=== PATIENT | female | born 1990 | race Caucasian/White ===

== ENCOUNTER 2017-10-05 15:30 | Outpatient (RCR) | payer MEDICAID, SELFPAY | END 2017-10-12 23:59 | LOC: DC 15:30 | PROVIDERS: Family Provider Internal Medicine; PCP Internal Medicine; Visit Provider Obstetrics & Gynecology | DX: O24.410 Gestational diabetes mellitus in pregnancy, diet controlled (principal); Z71.3 Dietary counseling and surveillance | CPT/HCPCS: 97802; G0108 ==

== ENCOUNTER 2017-11-08 22:30 | Inpatient (IN) | payer MEDICAID, SELFPAY ==
[2017-11-08 20:22] VITALS: BMI 26.2
[2017-11-08 21:21] LABS: Bedside Glucose 127 mg/dL (70-110)
[2017-11-08] MEDS: Acetaminophen 500 MG Tablet 1000 MG PO (21:56)
[2017-11-08] MEDS: Insulin NPH Human 100 UNITS/ML PEN 6 UNITS SC (21:57)
[2017-11-08] MEDS: Lactated Ringers 1,000 ML 50 ML IV ×2 (22:40→23:47)
[2017-11-08 23:05] LABS: Hematocrit 33.3 % (37-47); Hemoglobin 10.7 g/dl (12.0-15.0); Mean Corp Hgb Conc 32.1 g/gl (32-36); Mean Corpuscular Volume 77.8 fL (81-99); Mean Platelet Vol. 9.7 fl (6.2-12.0); Platelet Count 282 K/mm3 (150-450); RBC Distribution Width CV 13.6 % (11.6-14.6); RBC Distribution Width SD 38.6 fl (35.1-43.9); Red Blood Count 4.28 M/mm3 (4.2-5.4); Scan Indicated on CBC? Y/N NO; White Blood Count 17.5 K/mm3 (4.4-11.0)
[2017-11-08 23:10] LABS: Bedside Glucose 115 mg/dL (70-110)
[2017-11-09 00:16] LABS: Bedside Glucose 123 mg/dL (70-110)
[2017-11-09 01:10] LABS: Bedside Glucose 122 mg/dL (70-110)
[2017-11-09] MEDS: Dext 5%-0.45% NS 1,000 ML 125 ML IV ×2 (01:43→09:18)
[2017-11-09] MEDS: Lactated Ringers 1,000 ML 15 ML IV ×2 (01:43→03:20)
[2017-11-09 02:17] LABS: Bedside Glucose 127 mg/dL (70-110)
[2017-11-09 03:16] LABS: Bedside Glucose 116 mg/dL (70-110)
[2017-11-09 04:21] LABS: Bedside Glucose 119 mg/dL (70-110)
[2017-11-09 05:21] LABS: Bedside Glucose 112 mg/dL (70-110)
[2017-11-09 07:01] LABS: Bedside Glucose 95 mg/dL (70-110)
[2017-11-09 07:11] LABS: Bedside Glucose 96 mg/dL (70-110)
--- NOTE | 2017-11-09 07:51 | PCM.HP.OB ---
History Date of Admission: 11/08/17 Final RONALD: 11/19/17 Final RONALD Source: US <20 weeks Gestational age: 38 Weeks and 4 Days History of this : 27yo @ 38.3 weeks at time of admission. pt was c/o contractions and found to be making cervical change. pt is GDMA2 on insulin. Pt was started on insulin drip at admission due to elevated BS. Pertinent Past Medical History: PMH: Depression, GMDA2, Graves dx, Tobacco abuse Obhx: x 1 (7lb 4oz) Meds: Insulin all: NKDA Sxhx: Tonsillectomy Allergies No Known Allergies Allergy (Verified 11/08/17 20:26) Current Medications Acetaminophen (Tylenol) 325 - 650 mg PO Q4H PRN PRN PRN Reason: PAIN OR FEVER >100.4F Al Hydroxide/Mg Hydroxide (Mylanta Ii) 15 - 30 ml PO Q4H PRN PRN PRN Reason: INDIGESTION Citric Acid/Sodium Citrate (Bicitra) 30 ml PO UD PRN Dextrose (D50w Syringe) 0 gm IV X1 PRN; Protocol PRN Reason: Hypoglycemia Dextrose (D50w Syringe) 0 gm IV X1 PRN; Protocol PRN Reason: Hypoglycemia Glucagon () 1 mg IM .X1 PRN PRN Reason: Hypoglycemia Glucagon () 1 mg IM .X1 PRN PRN Reason: Hypoglycemia Lactated Ringer's () 1,000 mls @ 50 mls/hr IV .Q20H JUSTYN Last Admin: 11/08/17 23:47 Dose: 50 mls/hr Dextrose/Sodium Chloride () 1,000 mls @ 125 mls/hr IV .Q8H JUSTYN Last Admin: 11/09/17 01:43 Dose: 125 mls/hr Insulin Aspart 100 unit/ (Sodium Chloride) 100 mls @ 1 mls/hr CONT INF .Q100H JUSTYN; 1 UNIT/HR PRN Reason: Protocol Last Admin: 11/09/17 01:43 Dose: 1 mls/hr Lactated Ringer's () 1,000 mls @ 15 mls/hr IV .Q48H JUSTYN Last Admin: 11/09/17 03:20 Dose: 15 mls/hr Nalbuphine HCl (Nubain) 5 - 10 mg IV Q3H PRN PRN PRN Reason: PAIN (4-10/10) Ondansetron HCl (Zofran) 4 mg IV Q8H PRN PRN PRN Reason: NAUSEA Promethazine HCl (Phenergan (Ll)) 6.25 - 12.5 mg IV Q4H PRN PRN; Protocol PRN Reason: IF NAUSEA PERSISTS Sodium Chloride () 5 - 15 ml IV UD JUSTYN Last Admin: 11/09/17 01:26 Dose: Not Given Smoking Status: Current every day smoker Alcohol: None Drug Use: none Number of Fetus(es): 1 Review of Systems Constitutional: Reports: Anorexia Cardiovascular: Reports: Chest Pain Gastrointestinal: Reports: Abdominal Pain - from contractions Physical Exam Vitals: FHR: 130 mod elroy, + accels no decel. TOCO: q 2min General: Alert, Oriented x3 Abdomen: Soft, Non Tender, Gravid Estimated gestational size: Appropriate for gestational size Presentation: Cephalic Cervix Dilation (cm): 7 Station: -2 Effacement (%): 80 Assessment/Plan 27yo @ 38.4 wks in active labor- GDMA2 1) insulin drip protocol 2) epdiural for pain 3) Monitor fhr/toco 4) anticipate 5) PNL reviewed: O-, HIV neg, RUB imm, Syphilis neg, HEP B neg, GBS negative 6) Rhogam after delivery
[2017-11-09 08:06] LABS: Bedside Glucose 106 mg/dL (70-110)
--- NOTE | 2017-11-09 09:05 | PCM.PN.BLA ---
Progress Note S: Patient feeling comfortable with epidural. Denies sensation of rectal pressure. Patient's family at bedside, FOB sleeping. Patient' s mother providing support. O: VSS, Afebrile. Insulin pump at 3 units/hr FHT baseline 140, moderate variability, + accels, no decels, + scalp stim noted Ctx q 2-3 minutes, palpate mild to moderately strong SVE = unchanged 7/80/-1. Copious clear and pink-tinged mucus, IUPC placed A: 27 y/o @ 38.3 weeks, Transition Stage of Labor, GDMA2 P: 1) IUPC placed, decision for Pitocin IV Augmentation to be started pending confirmation of inadequate contractions 2) Anticipate Inessa Sánchez CNM
[2017-11-09] MEDS: Oxytocin 30 units/NS 500 ml 30 UNITS/500 ML IV.SOLN IV (09:19)
[2017-11-09 09:26] LABS: Bedside Glucose 112 mg/dL (70-110)
[2017-11-09 10:11] LABS: Bedside Glucose 110 mg/dL (70-110)
[2017-11-09 11:01] LABS: Bedside Glucose 107 mg/dL (70-110)
[2017-11-09] MEDS: Oxytocin 30 units/NS 500 ml 30 UNITS/500 ML IV.SOLN 334 UNITS IV (11:28)
[2017-11-09] MEDS: Oxytocin 30 units/NS 500 ml 30 UNITS/500 ML IV.SOLN 167 UNITS IV (12:01)
[2017-11-09 12:11] LABS: Bedside Glucose 82 mg/dL (70-110)
--- NOTE | 2017-11-09 12:13 | PCM.OB.VAG ---
Vaginal Delivery Maternal Presentation: Active Labor Amniotic Membrane Rupture Type: Artificial Amniotic Fluid Description: Clear Final RONALD: 11/19/17 Gestational age: 38 Weeks and 4 Days Date of Procedure: 11/09/17 Pre-Operative Diagnosis: Term , Active Labor, GDMA2 Post-Operative Diagnosis: of Viable Girl Baby Surgery/ Procedure Performed: Spontaneous Vaginal Delivery Type of Anesthesia: Epidural Description of Procedure: Patient reported feeling rectal pressure, desired to push with ctx. Patient found to be C/C/ +3. Patient pushed well with urge, delivered viable girl baby over 1st degree lacerated perineum at 11:23am. delivered OA, restituted to CELSA then ROT. Loose nuchal cord noted and was easily reduced. Anterior shoulder delivered spontaneously without difficulty followed by posterior shoulder and body. Infant placed on maternal chest where baby was dried and stimulated. Mouth and nose bulb suctioned. Infant then had spontaneous cry and respirations. Apgars 9 and 9. Weight pending. Umbilical cord clamped and cut once it stopped pulsing, placenta then delivered spontaneously via Archer mechanism. Placenta intact with 3VC, placental triage WNL. FF midline 3FB below umbilicus with massage. EBL = 350cc. Upon inspection of vaginal vault, 1st degree lacerated perineum noted and was repaired under epidural analgesia using 3-0 Rapide suture. Sponge and needle count correct. Baby to breast, bonding and initiated. Vaginal sweep negative. First blood sugar = 86, will do fasting BGM tomorrow AM. Anticipate resumption of regular diet and holding insulin at this time. Dr. Garcia notified of delivery. Inessa Sánchez CNM Presentation: Vertex, CELSA Placental Delivery Description: Spontaneous Placenta Disposition: [facility] Cord Vessel Description: 3 Vessels Nuchal Cord Compression: Without compression Cord Entanglement: Around neck x 1, loose Drain: Moreau to straight drain Estimated Blood Loss: 350 Infant A gender: Female (1 minute): 9 (5 minute): 9 Episiotomy Description: None Laceration: Midline, Vaginal Extension/lac, 1st degree Medications given after delivery: IV Pitocin Complications: None
[2017-11-09] MEDS: Ibuprofen 600 MG Tablet PO ×2 (13:02→18:54)
[2017-11-09] MEDS: 0.9% Saline Lock 10 ML Syringe IV (13:10)
[2017-11-09 13:30] VITALS: BP 103/61; PULSE 76; RESP 18; TEMP 36.7
[2017-11-09 15:16] VITALS: BP 101/61; PULSE 93; RESP 16; TEMP 36.5
--- NOTE | 2017-11-09 19:00 | NURSING ---
pt voided missed hat
[2017-11-09 20:00] VITALS: BP 110/66; PULSE 88; RESP 18
[2017-11-09 22:00] VITALS: BP 110/66; PULSE 88; RESP 16
--- NOTE | 2017-11-09 23:32 | NURSING ---
Infant heard crying out at nurses station. Entered room and patient holding . Asked if maybe diaper needed changed and patient stated I don't think so. Placed in crib. This nurse noticed in soiled diaper. Changed infant and swaddled. Asked patient if she wanted to hold infant, shrugged shoulders and stated yeah, I guess. given to patient. Patient's affect is extremely flat. Patient appears withdrawn at this time. SS consult is placed.
[2017-11-10 02:00] VITALS: BP 112/55; PULSE 98; RESP 17
--- NOTE | 2017-11-10 03:52 | DCINST_ITS ---
Discharge Diet: No Restrictions Discharge Activity: Return to Normal Activity, May not drive while taking narcotic pain medications., May Shower May resume sexual activity in: 4-6 weeks Additional Activity Instructions:: Nothing in the vagina for 4-6 weeks. You may return to work/school in 6 weeks. Call your doctor if your incision/area has: Continuous Slow Oozing, Sudden Increased Bleeding, Increased Pain/ Swelling, Increased Redness, Foul Smelling Discharge Call your doctor if you observe: Fever of 101 or Higher, Inability to urinate, Inability to have a bowel movement, Using more than one pad per hour Additional Instructions: If you experience any of the following, contact your healthcare provider. * Bleeding that soaks a pad every hour for 2 hours * Fever 100.4 or higher * Unrelieved incision or abdominal pain * Swelling, redness, discharge or bleeding from your incision or episiotomy site * Your incision begins to separate * Problems urinating (including inability to urinate or burning while urinating) . * Visual changes * Severe headache * Flu-like symptoms * Pain or redness in one of both of your breasts * Pain, warmth, tenderness or swelling in your legs, especially the calf area * Frequent nausea and vomiting * Symptoms of depression or anxiety If you experience any of the following, call 911 or go to the nearest Emergency Room. * Chest pain * Problems breathing * Seizure activity * Partial or complete paralysis of a body part, slurred speech, weakness or drooping of the face, or a sudden inability to walk or hold your balance Allergies/Adverse Reactions: Allergies No Known Allergies Allergy (Verified 11/08/17 20:26) Medications to take at Discharge Tablet 11/08/17 Acetaminophen [Tylenol] 1,000 mg PO Q8H PRN PRN tablet 11/09/17 Senna/Docusate Sodium [Senokot-S] 1 - 2 tablet PO DAILY PRN PRN tablet When: Call to make an appointment with your doctor in 6 weeks. If you had elevated Blood Pressure or 4th degree laceration you will need to be seen in 2 weeks. Primary Care Physician: Johny Aden MD [Primary Care Provider] -
[2017-11-10 04:00] VITALS: BP 93/54; PULSE 78; RESP 16
[2017-11-10] MEDS: Ibuprofen 600 MG Tablet PO ×2 (04:27→20:06)
--- NOTE | 2017-11-10 05:04 | NURSING ---
0430- Entered patient's room for assessment and vital signs. sleeping in crib. Questioned patient on last feeding time. Patient reported Around 10pm. Patient educated again on importance of feeding infant every 2-3 hours. Patient does not respond. Continues to have poor eye contract and flat affect. Nurse changed infant's diaper for 2nd time this shift. Consult made to case management.
[2017-11-10 05:51] LABS: Bedside Glucose 91 mg/dL (70-110)
[2017-11-10 05:57] LABS: Hematocrit 28.7 % (37-47); Hemoglobin 9.3 g/dl (12.0-15.0); Mean Corp Hgb Conc 32.4 g/gl (32-36); Mean Corpuscular Hgb 25.3 pg (27.0-32.0); Mean Platelet Vol. 9.7 fl (6.2-12.0); Platelet Count 200 K/mm3 (150-450); RBC Distribution Width CV 13.8 % (11.6-14.6); RBC Distribution Width SD 39.3 fl (35.1-43.9); Red Blood Count 3.68 M/mm3 (4.2-5.4); White Blood Count 19.3 K/mm3 (4.4-11.0)
[2017-11-10 06:01] LABS: Scan Indicated on CBC? Y/N NO
--- NOTE | 2017-11-10 07:33 | PCM.PN.BLA ---
Progress Note S: Patient at bedside baby, FOB also present and lovingly rubbing baby's back and stroking baby's head. Patient reports some periods of rest overnight, per her report baby is latching well. Patient notes no issues at this time. Denies dizziness, scotoma or PAYAN. Denies any issues with urination or ambulation. O: VSS, Afebrile Hgb = 9.3 Nipples without cracks, blisters. No ecchymoses noted. Abdomen NT x 4 quadrants, FF 3FB below umbilicus Perineum well-approximated, scant rubra lochia +2/4 reflexes in LE no edema noted Negative calf tenderness to palpation A: 27 y/o G2 now P2, PPD #1 following of viable baby girl, Normal PP Course, Asymptomatic Anemia P: 1) Rx Feosol 45mg PO 1 tablet daily for Asymptomatic Anemia 2) Consultation today 3) Anticipate discharge to home tomorrow 4) RTC at [facility] at 6 weeks PP. Inessa Sánchez CNM
--- NOTE | 2017-11-10 07:41 | PN_ITS ---
Progress Note S: Patient at bedside baby, FOB also present and lovingly rubbing baby's back and stroking baby's head. Patient reports some periods of rest overnight, per her report baby is latching well. Patient notes no issues at this time. Denies dizziness, scotoma or PAYAN. Denies any issues with urination or ambulation. O: VSS, Afebrile Hgb = 9.3 Nipples without cracks, blisters. No ecchymoses noted. Abdomen NT x 4 quadrants, FF 3FB below umbilicus Perineum well-approximated, scant rubra lochia +2/4 reflexes in LE no edema noted Negative calf tenderness to palpation A: 27 y/o G2 now P2, PPD #1 following of viable baby girl, Normal PP Course , Asymptomatic Anemia P: 1) Rx Feosol 45mg PO 1 tablet daily for Asymptomatic Anemia 2) Consultation today 3) Anticipate discharge to home tomorrow 4) RTC at [facility] at 6 weeks PP. Inessa Sánchez CNM
[2017-11-10] MEDS: Acetaminophen 500 MG Tablet 1000 MG PO (09:13)
[2017-11-10 09:15] VITALS: BP 97/59; PULSE 81; RESP 20; TEMP 36.3
[2017-11-10] MEDS: Senna/Docusate Sodium 1 Tablet PO (10:35)
--- NOTE | 2017-11-10 12:21 | NURSING ---
at 1150, pt remains in bed in the same position and holding baby in same position since the last round. pt did not order breakfast but encouraged to order lunch or get food from refridgerator. pt does know how to order. boyfriend now awake but sitting on couch looking at phone. pt instructed to call this nurse when baby feeds next so latch can be observed.
[2017-11-10 13:50] VITALS: BP 93/55; PULSE 74; TEMP 36.2
--- NOTE | 2017-11-10 15:16 | NURSING ---
at 1455, cony from social service called and made aware of pt's PHQ9 results. cony to call her manager gift for follow up. at 1500, nicole, social media senior associate, called this nurse and stated someone from social work will see pt due to pt having suicide thoughts. nicole informed that this nurse has not seen any behavior that would support suicide at this time. nicole informed that pt has not been out of bed much today with exception of shower.
--- NOTE | 2017-11-10 16:03 | CASEMGMT ---
Social Work: [facility] Lesvia to assess patient for suicidal ideations and lethality. TC to JANE Narvaez. Solange aware that Lesvia will come to assess need for suicide precautions. THIAGO Ceballos
--- NOTE | 2017-11-10 16:12 | NURSING ---
at 1535, pt resting on side and baby's crib close to tv cabinets and not close to pt's bed. pt awaken and assistance given after pt did not attempt to feed baby around 1515 which would have been 4 hours. pt asked about suicide thoughts and she stated that was just a few days. at 1605, nicole from behavioral health in to see pt after being introduced by this nurse.
--- NOTE | 2017-11-10 16:26 | BH.NOTE ---
BH: Inpatient Note - Notes Behavioral Health Inpatient Note: 11/10/17 16:26 Pt's PHQ-9 came back with score >15 and pt reported yes to suicidal ideations. This behavioral health therapist went to meet with pt to assess suicidal lethality. This therapist entered room with pt's nurse, Solange, and Solange introduced this therapist to pt explaining why therapist would be meeting with pt. This therapist met with pt and pt was holding her baby throughout discussion. This therapist explained that from pt's answers on the PHQ-9 it seemed pt was having a difficult time. Pt agreed she has been feeling sad and depressed most days. Pt reported she has history of being depressed off and on for years. Pt reports having post depression after the of her now 5 year old daughter. In addition to being depressed pt reports experiencing social anxiety. Pt reports her anxiety makes it difficult to go out in public to the grocery store or other places that have a lot of people. Pt shares this sometimes keeps her isolated and recognizes it can increase her depressive symptoms. Pt reports she is able to leave the house, but often has to force herself. Pt reports she has received treatment about 2 years ago for counseling at [facility]. Pt reports she did find it beneficial to have counseling and reports being open to going back. Pt also went to a psychiatrist at the [facility] for medication management, denies current psychiatric medications and is unsure if she would be open to trying medications again. This therapist asked pt if she was having suicidal thoughts currently. Pt reported she had suicidal thoughts for a couple days off and on in past few weeks while being . Pt denies suicidal ideation, plan or intention since giving . Pt reports feeling she is able to keep herself safe. Pt reports history of past psychiatric hospitalization when she was 15 years old for suicidal ideation. Denies any past suicidal attempts. Pt reports since she was a teenager has had of and on passive thoughts of with no plan or intention. Pt reports she used to engage in self-injurious behavior in which she would cut herself, denies the cutting was a suicide attempt and instead reports it was her coping skill. Pt reports I haven't done that in years though in regards to self-injuring. Pt does not appear to be imminent risk to self or others thus a sitter was not recommended at this time. Plan is for a social media analyst to follow up with pt tomorrow. Pt reports she has support from her mother and filindsay?. Reports currently living with mother who helps care for pt's 5 year old daughter. Pt reports having everything she needs for the new baby besides a car seat, but reports family is working on getting one and will have one prior to discharge. This therapist strongly encouraged pt to follow up with outpatient counseling because it appears pt could benefit from additional support. This therapist provided pt phone numbers for various counseling agencies in the area. This therapist offered to call with pt to schedule an intake appointment, but pt declined at this time reporting she would do it later. Provided pt with this therapist's business card and a handout with local resources for mental health services in the area. This therapist followed up with pt's nurse.
[2017-11-10 20:08] VITALS: BP 98/51; PULSE 70; RESP 16; TEMP 36.2
[2017-11-11 02:04] VITALS: BP 91/50; PULSE 71; RESP 16; TEMP 36
[2017-11-11 08:03] VITALS: BP 113/70; PULSE 75; RESP 16; TEMP 36.2
--- NOTE | 2017-11-11 10:30 | CASEMGMT ---
Social Work Note Labor and Delivery Unit Social Work Assessment completed. Refer to documentation below for further details. Date of Referral: 11/09/2017; 11/10/2017 Time of Referral: 2303; 0457 Referred By: Dr. Yordy Law; Dr. Julius Elizabeth Reason for Referral: maternal mental health issues Date of Intervention: 11.11.2017 Time of Intervention: 1030 History obtained from: Medical record and mother of baby (MOB) Nadege Lima Household composition: JV currently lives with her mother and father, infants maternal grandparents. Housing situation as of July 2016. MOB reports home situation is safe and adequate. Patient's parent/guardian status: MOB reports current involvement with Deejay Mahoney for the last 10 months, and is reported to be the father of baby (FOB). MOB reports stress in relationship as FOB has questioned paternity of , Gagandeep Mahoney. MOB denies having any uncertainty on paternity. MOB denies any form of abuse in relationship with FOB. Gagandeep is the first child for MOB and FOB together. JV has a daughter, Sabra Lima (born 12-26-12) from a previous relationship to Chandra Berg. MOB reports Chandra really doesnt have any involvement with Chandra. MOB reports current FOB has two children, ages 3 and 2, who live in [place]. Current FOB does not see those children. Medical History: JV is G2, P1 to 2 after delivering Baby Girl Gagandeep. MOB with later care starting at 15 weeks gestation. Record indicates maternal history of Gravess disease and Fibromyalgia. Gagandeep was born weighing 7 pounds 6 ounces, with Apgars of 8 and 9. MOB planning to breast feed. Educational Status: MOB reports completed through the 7th grade, dropping out of school due to depression and bullying. MOB denies any learning disability or IEP in school, and reports ability to read, write, and to understand what is read. Financial Status: JV does not currently work, really unable to say when last worked outside the home. MOB reports has been financially supported by my parents. Supplies: MOB reports to have needed supplies including bassinet, crib, diapers, wipes, and clothing. MOB does still need a car seat, but reports MOBs parents are purchasing prior to baby being discharged. Childcare/Caregiver(s): MOB plans to be primary caregiver to . Transportation: MOB reports has never had a drivers license, that has not been able to afford a car so has never felt the need to get the license. MOB reports MOBs parents, grandmother, or Deejay help with transportation. Programs/Agencies Involved: MOB reports to have medical and food assistance through S, and then has WIC. MOB patricia other agency involvement at this time. Children Services/Legal Issues: MOB denies legal issues. Denies past or present involvement with children services. Behavioral Health Issues: MOB with reported history of depression since the age of 13, with psychiatric hospitalization in adolescence, reportedly at the age of 15. MOB reports history of suicidal ideation off and on since adolescence. Chart indicates MOB with a history of self-injurious behaviors; history of Major Depressive Disorder, Borderline Personality Disorder, and Depression. MOB reports the depression, after older daughter was born was MOB having a lack of motivation. MOB reports history of trials on many different medications, but that Zoloft has worked the best in the past. Chart indicates MOB has been off of medications for the last 4 years. Note MOB did score an 18 on the PHQ9, answering yes to thoughts of suicide. MOB was seen by therapist from [facility] due to high score and for lethality assessment. MOB denied active thoughts, plans, or intent at that time, or any thoughts of suicide since delivery. Refer to Behavioral Health Documentation from 11-10-17, this admission, for further details. MOB denies any history of substance use or abuse. Negative drug screen prenatally on 08-03-2017. JV does smoke about a half a pack of cigarettes a day on average. Family/Social Stressors: JV is a single mother of two now, currently in a relationship with reported FOB to . Current FOB is reportedly questioning paternity. MOB reports to be accepting and happy about . MOB was living with a grandmother and then in July had to move due to the grandmother going to live in an assisted living. MOB could not maintain that home independently. MOB relies on others for transportation, and care indicates that MOB did fell isolated at home during this . MOB with mental health history, current depression present, not in any current treatment. Support Systems: MBO reports practical support from MOBs parents, FOB, and FOBs mother. MOB reports to receive emotional support from MOBs mother. Depression/Shaken Baby/Safe Sleeping: MOB educated to depression and anxiety. MOB able to give appropriate answers related to safe sleeping and shaken baby syndrome. ASSESSMENT: MOB reports to have adequate support at home from family, and that MOBs parents will be at home with MOB through the weekend. MOB reports parents are getting MOB a car seat, and then MOB will have all needed supplies to care for baby at home going. Regarding depression, MOB denies to this short story writer having any suicidal thoughts today, or since delivery of Rikku. MOB reports the thoughts which occurred prior to delivery surrounded around, and triggered by MOB having pain, which were not dealt with in MOBs opinion. MOB denies any intent or plan for suicide during this . MOB affect flattened with mood appearing congruent, normal eye contact. MOB did hold baby during assessment and was gentle and appropriate, intermittently gazed at , did try to feed baby once, though bonding cues at a minimum otherwise. MOB does identify positive feelings for baby and to feel there is a mejia already. Addressed feeding, as this short story writer noted nursing concern that baby went 6 hours without feeding the first night, and that MOB was needing much encouragement with baby care in general. MOB reports currently feeding the baby every 1-2 hours at this point. After discussion MOB agreed to have a [facility], a referral to [facility] if able to get services, and then to start back on antidepressant medications. MOB declining referral to [facility] program, as MOB states preference for one on one treatment. Updated nursing staff to need for social work follow up today as well as MOB agreement for antidepressant medication. Nursing to let OBGYN practitioner know so medication can be ordered at home going. PLAN: Will work on referrals back to the [facility]. -HEMALATHA Grossman, TRACTOR TRAILER TRUCK DRIVER
--- NOTE | 2017-11-11 13:06 | PN_ITS ---
Progress Note S: Patient sitting up in bed, patient's family and FOB at bedside providing support. Patient reports desire to be discharged to home today. Patient has noted increase depressive mood and feelings of self-harm. Hospital staff and Founder And President has been notified and has scheduled follow-up appointments with mental health early next week for patient. Patient reports good family support, patient's mother and FOB will be available to help provide support for patient when she goes home. Patient denies any pain, denies dizziness, scotoma or issues with ambulation. No urinary or bowel issues reported. O: VSS, Afebrile Nipples without cracks or blisters, no erythema or ecchymoses noted Abdomen NT x 4 quadrants, FF midline 2FB below umbilicus Scant rubra lochia, perineum well-approximated No calf tenderness in LE, no edema noted A: 27 y/o G2 now P2, PPD #2, PP Depression P: 1) Rx Zoloft 25 mg PO daily x 7 days, then increase dose to 2 pills PO daily. 2) Anticipatory health teaching done, patient will see mental health providers this Tuesday and in 3 weeks for n.v. 3) Patient to f/u with [facility] in 2 weeks for next visit 4) RTC otherwise in 6 weeks for PP visit Inessa Sánchez CNM
[2017-11-11 13:45] VITALS: BP 110/68; PULSE 85; RESP 16; TEMP 36.2
--- NOTE | 2017-11-11 16:30 | CASEMGMT ---
Social Work Note - Labor and Delivery Unit Mother of baby (JV) signed a release of information to [facility] today. Intake assessment arranged for 12-02-2017 at 1430 with Magdalena Whitaker. As this appointment is several weeks out, as MOB did rate a higher score on the PHQ9 with recent suicidal thoughts (though denies current or active thoughts, plans, intent), discussed with MOB having a sooner appointment with a telephone sex worker. MOB verbally agreed and reports will be able to get a ride from family. Arranged crisis appointment for Tuesday11-14-17 at 1400 with Marcia Salcedo. MOB confirms that will have family at home this weekend for extra support and that appointment on Tuesday will work out. MOB provided with community resource information for [facility], including options for mental health treatment, parent support, and in-kind support. Educated MOB to depression resources, including online resources which would be easy to access from home. After MOB and discharged home, this advertising copywriter approached by nursing staff. Nursing staff report that when MOB and were taken out to the car, the infant car seat was placed in the back of a truck and car seat was placed sideways and not buckled. Staff directed MOB to place the car seat in correct position and to get buckled. It is reported that MOB did comply with staff direction. This is of concern to this advertising copywriter, as this is MOBs second child and would be common knowledge about car seat safety and proper installation. Based on car seat issues at discharge, MOBs high depression rating initially after , recent thoughts of suicide, history of depression with MOB admission to having lack of motivation during that time, and then initial concerns about MOBs long periods between feedings, with not much support identified from FOB during that time, a referral made to Deb at [facility]. At this time not sure if enough to open a case, though if MOB would not go to mental health follow up then this advertising copywriter could call back to add concern to referral. PLAN: MOB and infant to home today. Mental Health follow up in place [facility] referral being made PPD packet given, including online resources Local community resource list given Transportation resources given regarding [facility] Van services and [employer] Referral to [facility] for dependency issues -THIAGO Grossman, BLOOD BANK CUSTODIAN
--- NOTE | 2017-11-16 09:00 | CASEMGMT ---
Social Work Labor and Delivery This residential mortgage underwriter able to verify, as the person who made initial appointment at [facility], that patient/mother of baby (MOB) did not show up to crisis appointment on 11-14-17. In light of high depression scores, suicidal thoughts in (though denied current thoughts), issues during hospitalization with feeding, and at time of discharge MOB not placing car seat correctly (and not a first time parent) this residential mortgage underwriter called [facility], Deb Bui, and left message with this update of MOB not following through with mental health appointment on 11-14-17. -THIAGO Grossman, AUTO VINYL TOP INSTALLER
== END 2017-11-11 13:45 | disposition home or self-care (01) | DRG 373 ==
LOC: WPOUT 22:35
PROVIDERS: Advanced Practice Midwife; Obstetrics & Gynecology; Admitting Provider Obstetrics & Gynecology; Family Provider Internal Medicine; PCP Internal Medicine; Visit Provider Obstetrics & Gynecology
DX: O24.424 Gestational diabetes mellitus in childbirth, insulin controlled (principal); F53 Mental and behavioral disorders associated with the puerperium, not elsewhere classified; O99.02 Anemia complicating childbirth; O99.334 Smoking (tobacco) complicating childbirth; O70.0 First degree perineal laceration during delivery; O69.81X0 Labor and delivery complicated by cord around neck, without compression, not applicable or unspecified; Z3A.38 38 weeks gestation of pregnancy; Z37.0 Single live birth
CPT/HCPCS: 59025; 59050; 82962; 85027; 85461; 86850; 86900; 86901; 90384; 99218; J7120; A4216; G0378; J2790; J7799

== ENCOUNTER 2019-07-10 15:05 | Inpatient (IN) | payer MEDICAID, SELFPAY ==
[2019-07-10 14:57] LABS: ROM Internal Control Test YES-OK TO RESULT pt. (Internal QC)
[2019-07-10 15:00] LABS: ROM Patient Test POSITIVE (Negative)
[2019-07-10 15:03] VITALS: BMI 28.4
[2019-07-10] MEDS: Lactated Ringers 1,000 ML 50 ML IV (15:55)
[2019-07-10] MEDS: Lactated Ringers 500 ML 999 ML IV (16:00)
[2019-07-10 16:27] LABS: Absolute Lymphocyte Count 1.11 X10^3/uL (0.83-4.51); Absolute Neutrophil Count 11.2 X10^3/uL (2.0-7.7); Basophil# 0.05 X10^3/uL; Basophil% 0.4 % (0-1); Eosinophil# 0.05 X10^3/uL; Eosinophils% 0.4 % (0-5); Hematocrit 36.4 % (37-47); Hemoglobin 11.5 g/dL (12.0-15.0); Lymphocyte # 1.11 X10^3/ul (4.0); Lymphocyte % 8.3 % (19-41); Mean Corp Hgb Conc 31.6 g/dL (32-36); Mean Corpuscular Hgb 24.5 pg (27.0-32.0); Mean Corpuscular Volume 77.6 fL (81-99); Mean Platelet Vol. 10.2 fl (6.2-12.0); Monocyte# 0.94 X10^3/uL; NRBC Flagged by Analyzer 0 % (0-5); Neutrophil # 11.16 X10^3/uL (2.7-7.7); Platelet Count 246 K/mm3 (150-450); RBC Distribution Width CV 13.6 % (11.6-14.6); Red Blood Count 4.69 M/mm3 (4.2-5.4); White Blood Count 13.4 K/mm3 (4.4-11.0)
[2019-07-10] MEDS: fentaNYL-bupivacaine (epidural) 100 ML BAG EPIDURAL (17:17)
--- NOTE | 2019-07-10 17:31 | PCM.HP.OB ---
History Date of Admission: 07/10/19 Final RONALD: 07/12/19 Final RONALD Source: US <20 weeks Gestational age: 39 Weeks and 5 Days History of this : This is a 28 year-old, G [], P [], at 39 weeks gestational age. Surgical History: Surgical History (Last Updated 07/10/19 @ 17:33 by Julius Elizabeth) Hx of tonsillectomy Z90.89 Allergies No Known Allergies Allergy (Verified 07/10/19 15:06) Home Medications: Home Medications Tablet 1 tab PO DAILY 11/08/17 Iron Carbonyl [Feosol] 45 mg PO DAILYCM capsule 11/10/17 Smoking Status: Current every day smoker Number of Fetus(es): 1 NST - FHR Rate Baby A Baseline: 120 Variability:: Moderate Accelerations:: 15 x 15 Decelerations:: None NST Reactive:: Yes Uterine Activity:: Q 2-4 minutes History Past Pregnancies: Past Pregnancies Delivery Date Name GA/Weeks Outcome Route Weight Infant Gender Labor Length Anesthesia Delivery Location Provider FOB Labs: See [facility] H[facility]P Physical Exam General: Alert, Oriented x3 Abdomen: Soft, Non Tender, Non-Distended, Gravid Neurological: Cranial nerves II-XII grossly intact ULTRASOUND SUPERVISOR: Normal external genitalia Estimated gestational size: Appropriate for gestational size Cervix Dilation (cm): 6 Station: -1 Effacement (%): 75 Assessment/Plan This is a 28 year-old, G3, P2002, at 39&5 weeks gestational age. Admit to L&D Pain - epidural GBS negative EFW less than 4500g, patient with adequate pelvis Routine care
[2019-07-10] MEDS: Oxytocin 30 units/NS 500 ml 30 UNITS/500 ML IV.SOLN 334 UNITS IV (20:17)
--- NOTE | 2019-07-10 20:32 | PCM.OPRPT ---
Vaginal Delivery Maternal Presentation: Active Labor, Spontaneous Rupture of Membranes Amniotic Membrane Rupture Type: Spontaneous at home Amniotic Fluid Description: Clear Final RONALD: 07/12/19 Gestational age: 39 Weeks and 5 Days Date of Procedure: 07/10/19 Pre-Operative Diagnosis: Labor Post-Operative Diagnosis: Labor Surgery/ Procedure Performed: Spontaneous Vaginal Delivery Type of Anesthesia: Epidural Description of Procedure: Patient prepped & draped in stirrups when C/C/+1. She pushed to deliver head. head was gently guided to allow delivery of anterior & posterior shoulders. No excess traction placed on head. Body delivered & infant placed on abdomen. 3VC clamped & cut in delayed fashion. Placenta delivered with gentle traction. Good uterine tone obtained. Presentation: CELSA Placental Delivery Description: Expressed Placenta Disposition: [facility] Cord Vessel Description: 3 Vessels Cord Entanglement: Around neck x 1, loose Estimated Blood Loss: 400ml A gender: Female - Opal (1 minute): 8 (5 minute): 9 Episiotomy Description: None Laceration: 2nd degree - perineal - repaired with 3-0 vicryl Medications given after delivery: IV Pitocin
[2019-07-10] MEDS: Ibuprofen 600 MG Tablet PO (21:51)
[2019-07-10 23:47] VITALS: BP 109/62; PULSE 82; RESP 16; TEMP 36.6; O2SAT 98
[2019-07-11 04:35] VITALS: BP 101/59; PULSE 81; RESP 16; TEMP 36.4; O2SAT 98
[2019-07-11] MEDS: Acetaminophen 500 MG Tablet 1000 MG PO (04:46)
[2019-07-11 08:00] VITALS: BP 99/65; PULSE 72; RESP 18; TEMP 36.6
--- NOTE | 2019-07-11 08:21 | PCM.PN.OB ---
Subjective: Pt doing well. No CP, SOB, lightheadedness, leg pain. Ambulating and voiding without difficulty. Lochia normal. - Physical Exam Vitals/I&O's: Vital Signs Temp Pulse Resp BP Pulse Ox 97.5 F L 81 16 101/59 L 98 07/11/19 04:35 07/11/19 04:35 07/11/19 04:35 07/11/19 04:35 07/11/19 04:35 Oxygen Delivery Method Room Air Weight: 181 lb 12.8 oz Body Mass Index (BMI) 28.4 Intake and Output for Last 24 Hours 07/09/19 07/10/19 07/11/19 23:59 23:59 23:59 Intake Total 1957.50 / 1957.50 Output Total 300 / 300 300 / 300 Balance 1657.50 / 1657.50 -300 / -300 General: Alert, No apparent distress HEENT: Atraumatic Abdomen: Soft, Non Tender, - - FF@U-1 Extremities: No edema, No Calf Tenderness Skin: No rashes Neurological: Neuro grossly intact Psych/Mental Status: Normal Affect, Appropriate Laboratory Results 07/10/19 14:45: Vag Amniotic Fld Detect POSITIVE H 07/10/19 15:55: WBC 13.4 H, RBC 4.69, Hgb 11.5 L, Hct 36.4 L, MCV 77.6 L, MCH 24.5 L, MCHC 31.6 L, RDW Std Deviation 38.0, RDW Coeff of Rita 13.6, Plt Count 246, MPV 10.2, Immature Gran % (Auto) 0.900, Neut % (Auto) 83.0 H, Lymph % (Auto) 8.3 L, [place] % (Auto) 7.0, Eos % (Auto) 0.4, Baso % (Auto) 0.4, Absolute Neuts (auto) 11.2 H, Absolute Lymphs (auto) 1.11, Nucleated RBC % 0 07/10/19 15:55: Blood Type O NEGATIVE, Antibody Screen TNP 07/10/19 15:55: Blood Type Cancelled, ABO/Rh Cancelled, A1 Subgroup Cancelled, A1 Antigen Typing Cancelled, Rho(D) Tech Interpret Cancelled, Antibody Screen NEGATIVE 07/10/19 22:20: Screen NEGATIVE, Baby's Blood Type O POSITIVE, Baby's BEAR NEGATIVE Current Medications Acetaminophen (Tylenol) 1,000 mg PO Q8H PRN PRN PRN Reason: Pain Score 1-3/10 Last Admin: 07/11/19 04:46 Dose: 1,000 mg Documented by: Bisacodyl (Dulcolax) 10 mg RECTAL UD PRN PRN Reason: If no BM Dibucaine (Dibucaine) 1 applic TOPICAL TID PRN PRN; Protocol PRN Reason: Discomfort Hydrocortisone (Hytone) 1 applic TOPICAL TID PRN PRN; Protocol PRN Reason: Discomfort Ibuprofen (Motrin) 600 mg PO Q6H PRN PRN PRN Reason: Pain Score 1-3/10 Last Admin: 07/10/19 21:51 Dose: 600 mg Documented by: Methylergonovine Maleate (Methergine) 0.2 mg IM X1 PRN PRN Reason: Excess bleeding/uterine atony Ondansetron HCl (Zofran) 4 mg IV Q4H PRN PRN PRN Reason: Nausea Oxycodone HCl (Oxyir) 5 - 10 mg PO Q4H PRN PRN PRN Reason: Pain Score 4-10/10 Senna/Docusate Sodium (Senokot-S, Francheska-Colace) 1 - 2 tablet PO DAILY PRN PRN PRN Reason: Constipation Simethicone (Mylicon) 80 mg PO PCHS PRN PRN Reason: Indigestion/Stomach pain Sodium Chloride () 5 - 15 ml IV UD PRN PRN Reason: SALINE FLUSH Medical Necessity - Tobacco Use Smoking Status: Current every day smoker Assessment/Plan PPD#1 s/p - Pt doing well - She desires to stay an additional night. Anticipate d/c home tomorrow
[2019-07-11 12:00] VITALS: BP 104/60; PULSE 73; RESP 16; TEMP 36.4
[2019-07-11] MEDS: Ibuprofen 600 MG Tablet PO (13:04)
--- NOTE | 2019-07-11 14:30 | CASEMGMT ---
Social Work Assessment Labor and Delivery Unit Address:[address] [place] [address] Date of Referral: 07.11.2019 Time of Referral: 08 Referred By: nursing notification Date of Intervention: 07.11.2019 Time of Intervention: 1430 Reason for Referral: maternal history of depression. History obtained from: medical records and mother of baby (MOB) Nadege Lima. This service writer familiar with MOB from prior deliveries at [facility] Household composition: MOB reports to live with her mother and father, reports home is stable and no safety concerns. Also in the home are MOB's minor children. Note, the father of baby lives separately from MOB in FOB's parental home. Patient's parent/guardian status: JV is 28 year old single female, involved with reported father of baby (FOB) Deejay Mahoney since 2016. JV denies any form of abuse in relationship with Deejay. Deejay is the father to 2 of JV's 3 children. Deejay has 2 other daughters, ages 4 and 3 who are living in [place]. JV's minor children include: Sabra Lima (born 12.26.2012), father is Chandra Berg. Chandra has not had contact with Sabra in a couple of years. JV's mother, Elli, has guardianship of Sabra. Gagandeep Mahoney (born 11.09.2017), father if Deejay Mahoney; Child is in JV's custody, no guardianship agreement for this child. Baby Opal Mahoney (born 07.10.2020) Medical History: JV is G3, P2 to 3 after delivering Opal. care good, starting at 9 weeks. Per medical records, the MOB has history of Graves disease, fibromyalgia, and migraines. Baby Opal as born at 39 weeks. Birthweight 8 pounds 10 ounces. Apgars 8 and 9 at 1 and 5 minutes respectively. Educational Status: MOB with a 7th grade education. MOB reports to be able to read. Prior social work assessment MOB denied any history of IEP or learning issues. MOB reportedly quit school due to bullying and depression. Financial Status: JV does not work and is reliant on her parents who work or the FOB who works at [employer] on 2th shift. Supplies: MOB states to have needed supplies to get started including bassinet, car seat, clothing, diapers, and wipes. MOB report no longer has a breast pump, does plan to breast feed. Childcare/Caregiver(s): MOB with help from FOB and MOB's mother. Transportation: MOB does not have her tractor driver teamster's license and relies on FOB or MOB's family. MOB denies transportation as an issue. Programs/Agencies Involved: MOB i active with S for medicaid and then with WIC. MOB reports was going to [facility] but last appointment was in February 2019. Children Services/Legal Issues: MOB denies any legal issues. MOB reports children services came out to the house a couple of times after Gagandeep was born and then closed the case. MOB denies any services since that one episode. There was concern after Gagandeep's regarding maternal depression and bonding with baby. Behavioral Health Issues: Mental Health History: MOB diagnosed with depression at the age of [age] years old. MOB with inpatient hospitalization at the age of 15 at [facility]. Has been on various medications through the years, but Zoloft has worked the best. MOB is not on any current psychiatric medicine. MOB had history of depression after of first daughter. MOB denies depression after Riisau, though at time of Gagandeep's MOB did screen positive for depression and had endorsed some suicidal ideation at that time. MOB report did go on medicine for about a month after Rikku and then feel as if MOB no longer needed the medicine. MOB with history of Borderline personality diagnosis and history of self injurious behavior by cutting. MOB denies any thoughts of suicide during this , no plans, or intent. Denies any self injurious behavior, nor any thoughts or desires to self injure (which as described in the past as something MOB did for coping rather than being suicidal). MOB reports was going to see a counselor at [facility] this year but the therapist moved away and MOB does not know who was referred to. MOB reports belief that last episode of treatment was in February 2019. Substance Use History: MOB denies any substance use or abuse issues outside of or during . Chart indicates that MOB does drink socially about 1-2 drinks a week outside of . MOB did smoke tobacco daily, reporting that amount depended on the day and MOB's stress levels. Family History: MOB's mother and maternal grandmother with history of depression. Drug Screens: Maternal screen negative on 12.12.2018. Family/Social Stressors: Unplanned and closely spaced pregnancies. MOB admits as shocked but did come to accept the and reports to feel a connection to this baby. MOB and FOB did separate a week before MOB found about about , not disclosing reasoning behind this but denies any safety issues. MOB reports did reconcile with FOB and things are going okay. MOB with history of mental health and not in current treatment, though reports to know where to go. At this time Maria Stein depression screen a 6, which 10 or higher indicative of likely depression. Support Systems: MOB reports her parents, FOB, and FOB's parents as ely supports. MOB reports her mother is her main emotional support. Depression/Shaken Baby/Safe Sleeping : MOB is aware of depression, denies interested in having social media community manager make a referral back to [facility] at this time. MOB reports to feel that depression is stable at this time. Denies thoughts of suicide, denies any bonding issue with baby, and report to feel a connection. MOB reports awareness of safe sleeping and shaken baby prevention. ASSESSMENT: Met with MOB introducing to self and role. MOB nodded head yes about remembering this service writer from pervious delivery. MOB quiet, flattened affect though did smile at times and did engage with baby during social work visit. MOB held baby appropriately, gazed at baby, and held baby. No voiced concerns thus far regarding mother/child interactions or bonding issues. Per RN, MOB has been attending to the baby and caring for the baby's needs. MOB report to have needed supplies for baby, to have support at home going, and denies current depression. MOB does know where to go for help in this area and indicates that can make own appointments if the need arises at time of discharge. MOB does decline [facility] or [facility] referrals at this time, but accepting of referrals. MOB answered questions, was polite, but not expansive on answers. MOB has been taking care of baby this admission, depression screens have been low and MOB denies any thoughts/plans/intent for suicide. No indication to call children services at this time. MOB report to have good support from her parents, and especially from her mother with the kids. PLAN: MOB and baby to home when ready. MOB provided with resource lists fo [facility] that including parent support and counseling. depression packet given as well. No other services requested or indicated but social work does remain available during hospital stay should needs arise or status with MOB and baby change. -HEMALATHA Grossman, PACKAGING SALES
[2019-07-11 16:00] VITALS: BP 110/70; PULSE 81; RESP 16; TEMP 36.7
[2019-07-11 20:50] VITALS: BP 103/64; PULSE 75; RESP 16; TEMP 36.7
[2019-07-12] MEDS: Ibuprofen 600 MG Tablet PO (00:39)
[2019-07-12 02:00] VITALS: BP 108/69; PULSE 75; RESP 18; TEMP 36.4
--- NOTE | 2019-07-12 07:54 | PCM.PN.OB ---
Subjective: Pt doing well. No CP, SOB, leg pain. Ambulating and voiding without difficulty. without any complaints. Lochia normal. She feels ready to go home today - Physical Exam Vitals/I&O's: Vital Signs Temp Pulse Resp BP Pulse Ox 97.6 F L 75 18 108/69 98 07/12/19 02:00 07/12/19 02:00 07/12/19 02:00 07/12/19 02:00 07/11/19 04:35 Oxygen Delivery Method Room Air Weight: 181 lb 12.8 oz Body Mass Index (BMI) 28.4 Intake and Output for Last 24 Hours 07/10/19 07/11/19 07/12/19 23:59 23:59 23:59 Intake Total 1957.50 / 1957.50 Output Total 300 / 300 700 / 700 Balance 1657.50 / 1657.50 -700 / -700 General: Alert, No apparent distress HEENT: Atraumatic Abdomen: Soft, Non-Distended Extremities: No edema, No Calf Tenderness Skin: No rashes Neurological: Neuro grossly intact Psych/Mental Status: Normal Affect, Appropriate Current Medications Acetaminophen (Tylenol) 1,000 mg PO Q8H PRN PRN PRN Reason: Pain Score 1-3/10 Last Admin: 07/11/19 04:46 Dose: 1,000 mg Documented by: Bisacodyl (Dulcolax) 10 mg RECTAL UD PRN PRN Reason: If no BM Dibucaine (Dibucaine) 1 applic TOPICAL TID PRN PRN; Protocol PRN Reason: Discomfort Hydrocortisone (Hytone) 1 applic TOPICAL TID PRN PRN; Protocol PRN Reason: Discomfort Ibuprofen (Motrin) 600 mg PO Q6H PRN PRN PRN Reason: Pain Score 1-3/10 Last Admin: 07/12/19 00:39 Dose: 600 mg Documented by: Methylergonovine Maleate (Methergine) 0.2 mg IM X1 PRN PRN Reason: Excess bleeding/uterine atony Ondansetron HCl (Zofran) 4 mg IV Q4H PRN PRN PRN Reason: Nausea Oxycodone HCl (Oxyir) 5 - 10 mg PO Q4H PRN PRN PRN Reason: Pain Score 4-10/10 Senna/Docusate Sodium (Senokot-S, Francheska-Colace) 1 - 2 tablet PO DAILY PRN PRN PRN Reason: Constipation Simethicone (Mylicon) 80 mg PO PCHS PRN PRN Reason: Indigestion/Stomach pain Sodium Chloride () 5 - 15 ml IV UD PRN PRN Reason: SALINE FLUSH Medical Necessity - Tobacco Use Smoking Status: Current every day smoker Assessment/Plan PPD#2 s/p - Doing well - - PPBC: Pt undecided and would like to wait until her 6 week visit - Dispo: Pt feels ready to go home today. D/c home
--- NOTE | 2019-07-12 07:58 | DCINST_ITS ---
Discharge Diet: No Restrictions Discharge Activity: Return to Normal Activity, May Drive, May Shower, May Take a Tub Bath May resume sexual activity in: 6 weeks Weight Bearing Status: Full weight bearing Lifting Restrictions: None Call your doctor if you observe: Fever of 101 or Higher, Inability to urinate, Inability to have a bowel movement, Using more than one pad per hour, Shortness of breath, Dizziness, Fainting spells, Chest pain, Increased palpitations (irregular heartbeat), Calf discomfort, Uncontrolled pain Additional Instructions: If you experience any of the following, contact your healthcare provider. * Bleeding that soaks a pad every hour for 2 hours * Fever 100.4 or higher * Unrelieved incision or abdominal pain * Swelling, redness, discharge or bleeding from your incision or episiotomy site * Your incision begins to separate * Problems urinating (including inability to urinate or burning while urinating). * Visual changes * Severe headache * Flu-like symptoms * Pain or redness in one of both of your breasts * Pain, warmth, tenderness or swelling in your legs, especially the calf area * Frequent nausea and vomiting * Symptoms of depression or anxiety If you experience any of the following, call 911 or go to the nearest Emergency Room. * Chest pain * Problems breathing * Seizure activity * Partial or complete paralysis of a body part, slurred speech, weakness or drooping of the face, or a sudden inability to walk or hold your balance Allergies/Adverse Reactions: Allergies No Known Allergies Allergy (Verified 07/10/19 15:06) Medications to take at Discharge Tablet 1 tab PO DAILY 11/08/17 Iron Carbonyl [Feosol] 45 mg PO DAILYCM capsule 11/10/17 When: 6 weeks Primary Care Physician: Johny Aden MD [Primary Care Provider] - Test Results: Test results from this visit will be discussed in further detail at your follow- up appointment, if applicable.
[2019-07-12 08:11] VITALS: BP 102/65; PULSE 77; RESP 16; TEMP 36.4
--- NOTE | 2019-07-12 09:30 | CASEMGMT ---
Social Work Labor and Delivery Unit Checked in with nursing staff. No concerns about mother/child interactions or bonding. Mother of baby (MOB) is reported to be attending to baby's needs. See previous social work documentation for details of MOB's social history. No other services requested or indicated at this time. Plan: MOB and baby to discharge home today 07.12.2019. -THIAGO Grossman, CORN COOKER
[2019-07-12 12:20] VITALS: BP 100/60; PULSE 80; RESP 16; TEMP 36.1
== END 2019-07-12 12:50 | disposition home or self-care (01) | DRG 560 ==
LOC: WPOUT 15:12
PROVIDERS: Admitting Provider Obstetrics & Gynecology; Family Provider Internal Medicine; PCP Internal Medicine; Referring Provider Obstetrics & Gynecology; Visit Provider Obstetrics & Gynecology
DX: O69.81X0 Labor and delivery complicated by cord around neck, without compression, not applicable or unspecified (principal); O99.334 Smoking (tobacco) complicating childbirth; Z3A.39 39 weeks gestation of pregnancy; Z37.0 Single live birth
CPT/HCPCS: 59025; 59050; 84112; 85025; 85461; 86850; 86900; 86901; 90384; 99218; J7120; G0378; J2790

== ENCOUNTER 2020-04-03 10:42 | Emergency (ER) | payer MEDICAID, SELFPAY ==
[2020-04-03 10:43] VITALS: BP 104/84; PULSE 98; RESP 16; TEMP 36.8; O2SAT 98; BMI 20.3
--- NOTE | 2020-04-03 11:04 | ED.VISSUMM ---
- ER Visit Summary Date of Service: 04/03/20 Chief Complaint: Shortness of breath History of Present Illness: The patient is a 29 F who presents with shortness of breath that is been getting worse over the past 3 days. Patient also admits to some aching in her chest. Patient states nothing makes her breathing better or worse. Patient admits to subjective chills. Patient denies any sick contacts. Patient admits to some nausea but denies any vomiting. Patient admits to a mild headache. Patient admits to a cough but denies any sputum production. Patient denies any sore throat or rhinorrhea. Physical Examination: Vital signs are stable. Patient is afebrile. Patient is in no acute distress. Oral mucosa is pink and moist. Oropharynx is clear. Neck is supple. Trachea is midline. There is no JVD. Heart was regular rate and rhythm. Lungs are slightly diminished bilaterally. There is good respiratory effort noted. Abdomen is soft. Bowel sounds are normal. There is no tenderness. Cranial nerves II through XII are intact. There are no focal motor or sensory deficits noted. Extremities are intact. There is no calf tenderness or edema. Test Results: CBC and comprehensive metabolic profile were within normal limits. Portable chest x-ray was obtained. There is no acute cardiopulmonary process. This was interpreted by the radiologist and myself. Emergency Department Course and Treatment: Patient was given a DuoNeb treatment here. Patient is feeling better on reevaluation. Patient was instructed to drink plenty of fluids. Patient was instructed to follow-up with her primary care physician in 5 to 7 days. Patient understood and was agreeable with the plan. All questions were answered. Disposition: Discharge home Impression: Viral upper respiratory infection This note was generated with [employer] dictation software. It may contain incorrect words, spelling, and punctuation that were not noted in review of the chart prior to signing ED Disposition - Plan for ED Patient: Disposition: Home or Assisted Living Diagnosis: Viral upper respiratory infection Instructions: ED URI Viral Referrals: Johny Aden MD [Primary Care Provider] - 5-7 Days
[2020-04-03 11:20] VITALS: O2SAT 98
--- NOTE | 2020-04-03 11:20 | RAD_ITS ---
STUDY: X-RAY CHEST REASON FOR EXAM: Female, 29 years old. DYSPNEA, CHEST PAIN TECHNIQUE: Single AP portable view of the chest. COMPARISON: None. FINDINGS: EKG leads overlie the chest The lungs are clear and expanded. There is no demonstrated pleural abnormality. Normal size heart. Normal mediastinum and kayli. Normal visualized pulmonary arteries. Normal visualized aortic arch and descending thoracic aorta. Normal visualized thoracic spine. Normal visualized ribs, clavicles, and shoulders. There is no demonstrated abnormality of the visualized soft tissue structures of the upper abdomen. RAD/Chest 1 View (Portable) IMPRESSION: Normal x-ray examination of the chest. Electronically Signed: Bj Serrano MD at 11:36 EDT , Service support ,
[2020-04-03 11:25] LABS: Absolute Lymphocyte Count 1.43 X10^3/uL (0.83-4.51); Absolute Neutrophil Count 4.7 X10^3/uL (2.0-7.7); Basophil# 0.04 X10^3/uL; Basophil% 0.6 % (0-1); Eosinophil# 0.09 X10^3/uL; Eosinophils% 1.3 % (0-5); Hematocrit 40.8 % (37-47); Hemoglobin 13.3 g/dL (12.0-15.0); Lymphocyte # 1.43 X10^3/ul (4.0); Mean Corp Hgb Conc 32.6 g/dL (32-36); Mean Corpuscular Hgb 27.4 pg (27.0-32.0); Mean Corpuscular Volume 84.1 fL (81-99); Mean Platelet Vol. 11.1 fl (6.2-12.0); Monocyte# 0.52 X10^3/uL; Monocyte% 7.6 % (0-10); NRBC Flagged by Analyzer 0 % (0-5); Neutrophil # 4.69 X10^3/uL (2.7-7.7); Neutrophil % 69.1 % (47-70); Platelet Count 255 K/mm3 (150-450); RBC Distribution Width CV 12.8 % (11.6-14.6); RBC Distribution Width SD 38.9 fl (35.1-43.9); Red Blood Count 4.85 M/mm3 (4.2-5.4); White Blood Count 6.8 K/mm3 (4.4-11.0)
[2020-04-03 11:46] LABS: ALB/GLOB Ratio 1.7 RATIO (0.9-2.4); AST(SGOT) 14 U/L (15-37); Alanine Aminotransfer ALT/SGPT 20 U/L (13-56); Albumin, Serum 4.6 g/dL (3.2-5.0); Alkaline Phosphatase 97 U/L (45-117); Anion Gap 3 (5-15); BUN 14 mg/dL (7-18); BUN/Creat Ratio 15.2 RATIO (10-20); Chloride 109 mmol/L (98-107); Creatinine, Serum 0.92 mg/dL (0.55-1.02); EST Glomerular Filtration Rate 76 mL/min (>60); Est Glom Filt Rate - Afr Amer 92 mL/min (>60); Estimated Creatinine Clearance 83.23 ml/min; Globulin 2.7 g/dL (2.2-4.2); Glucose 88 mg/dL (74-106); Potassium 3.8 mmol/L (3.5-5.1); Protein, Total 7.3 g/dL (6.4-8.2); Sodium Level 141 mmol/L (136-145)
[2020-04-03 12:31] VITALS: PULSE 90; RESP 16
[2020-04-03] MEDS: Ipratropium/Albuterol Sulfate 3 ML AMPUL.NEB INHALATION (12:31)
[2020-04-03 12:51] VITALS: BP 108/80; PULSE 87; RESP 15; O2SAT 100
== END 2020-04-03 12:51 | disposition home or self-care (01) ==
PROVIDERS: Emergency Provider Emergency Medicine; PCP Internal Medicine
DX: J06.9 Acute upper respiratory infection, unspecified (principal); F17.200 Nicotine dependence, unspecified, uncomplicated
CPT/HCPCS: 71045; 80053; 85025; 94640; 99283; A4216

== ENCOUNTER → 2020-04-09 18:07 | Outpatient (CLI) | payer MEDICAID, SELFPAY ==
[2020-04-03 10:43] VITALS: BMI 20.3
== END ==
PROVIDERS: PCP Internal Medicine; Referring Provider Nurse Practitioner; Visit Provider Nurse Practitioner
DX: Z20.828 Contact with and (suspected) exposure to other viral communicable diseases (principal)
CPT/HCPCS: 87635; 94799; U0003

== ENCOUNTER 2020-10-01 19:18 | Emergency (ER) | payer MEDICAID, SELFPAY ==
[2020-10-01 19:19] VITALS: BP 119/84; PULSE 118; RESP 16; TEMP 36.2; O2SAT 100; BMI 16.7
--- NOTE | 2020-10-01 19:42 | ED.VIS.GEN ---
History of Present Illness Chief Complaint: Dental Informant: Patient Narrative: 29-year-old female presenting with pain in her right posterior lower second molar. She tells me this is been hurting for the past couple days but today got more intense. She has widespread dental decay. She does not have a dentist nor has she called to make an appointment at a dentist. She is a smoker but has not smoked today. No fevers. Past Medical History - Allergies and Home Meds Allergies/Adverse Reactions: Allergies No Known Allergies Allergy (Verified 10/01/20 19:20) Primary Care Physician: Johny Aden MD [Primary Care Provider] - As Needed Past Medical History: - - Graves' disease depression Surgical History: noncontributory Smoking Status: Current every day smoker Drugs: None Review of Systems General: Denies: Chills, Fever, Sweats Eyes: Denies: Visual changes - bilaterally, Diplopia ENT: Reports: - - Dental pain. Denies: Rhinorrhea, Sore throat Cardiovascular: Denies: Chest pain, Palpitations Respiratory: Denies: Dyspnea, Cough, Dyspnea on exertion Gastrointestinal: Denies: Abdominal pain, Nausea, Vomiting, Diarrhea, Melena, Hematochezia Genitourinary: Denies: Dysuria, Hematuria, Frequency Musculoskeletal: Denies: Back pain, Extremity Pain Skin: Denies: Rash, Wounds Neurological: Denies: Headache, Weakness, Numbness Physical Exam Vital Signs/Narrative: Vital Signs Temp Pulse Resp BP Pulse Ox 10/01/20 19:19 97.2 F L 118 H 16 119/84 H 100 Inital Vital Signs reviewed: Yes General: Well nourished, Well developed, No Acute Distress Head: Normocephalic, Atraumatic Eyes: Perrl, EOMI ENT: Moist mucous membranes, No rhinorrhea, - - Widespread dental okay. There is inflammation of the gum tissue along the right lower second molar. No drainable abscess noted. The tooth is decayed below the gumline. Floor the mouth is soft. No overlying facial swelling or redness. Neck: Supple, Nontender Cardiovascular: Regular rate, Regular rhythm, No murmurs Respiratory: No distress, CTA bilaterally, Chest nontender Abdomen: Soft, Nontender, Nondistended, Normal bowel sounds Back: Nontender, Normal Inspection Extremities: Nontender, No edema Skin: Normal color, No rash Neurological: Alert, Oriented x3, Cranial nerves II-XII grossly intact, Normal Strength, Normal Sensation Psychological: Normal affect, Normal Mood Diagnostic/Tx/Re-eval - Medical Decision Making Patient was advised she needs to contact a dentist immediately. Give her a list of dental resources in [facility]. I will place her on penicillin Peridex Motrin and a few [place]. Return if worsening or concerns ED Disposition - Plan for ED Patient: Disposition: Home or Assisted Living Diagnosis: Dental abscess Instructions: Dental Abscess Prescriptions: Hydrocodone Bitart/Apap 5-325 [[place] 5MG-325MG] 1 tab PO Q6H PRN PRN 3 Days #10 tab PRN Reason: Pain Prescription Printed Chlorhexidine Gluconate [Paroex] 15 ml MM TID #773 ml Prescription Printed Penicillin V Potassium 500 mg PO 4X/DAY #40 tab Prescription Printed Referrals: Johny Aden MD [Primary Care Provider] - As Needed
[2020-10-01 20:04] VITALS: RESP 17
== END 2020-10-01 20:05 | disposition home or self-care (01) ==
LOC: ED 19:55
PROVIDERS: Emergency Provider Emergency Medicine
DX: K04.7 Periapical abscess without sinus (principal); F17.200 Nicotine dependence, unspecified, uncomplicated
CPT/HCPCS: 99282

== ENCOUNTER 2021-01-01 11:20 | Outpatient (RCR) | payer MEDICAID, SELFPAY | END 2021-02-17 23:59 | LOC: IMMUN 11:20 | PROVIDERS: Referring Provider Family Medicine; Visit Provider Family Medicine | DX: Z23 Encounter for immunization (principal) | CPT/HCPCS: 0001A; 0002A; 91300 ==

== ENCOUNTER 2022-11-10 17:15 | Emergency (ER) | payer MEDICAID, SELFPAY ==
[2022-11-10 17:26] VITALS: BP 99/73; PULSE 102; RESP 14; TEMP 36.2; O2SAT 98; BMI 20.2
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
[2022-11-10 20:18] VITALS: PULSE 90; RESP 16; O2SAT 97
== END 2022-11-10 20:18 | disposition home or self-care (01) ==
PROVIDERS: Emergency Provider Emergency Medicine; Visit Provider Emergency Medicine
DX: S06.0X0A Concussion without loss of consciousness, initial encounter (principal); S16.1XXA Strain of muscle, fascia and tendon at neck level, initial encounter; V43.62XA Car passenger injured in collision with other type car in traffic accident, initial encounter; F17.210 Nicotine dependence, cigarettes, uncomplicated
CPT/HCPCS: 70450; 72125; 99282

== ENCOUNTER 2025-04-04 11:18 | Emergency (ER) | payer MEDICAID, SELFPAY ==
[2025-04-04 11:20] VITALS: BP 113/73; PULSE 83; RESP 16; TEMP 36.4; O2SAT 100; BMI 22.0
[2025-04-04 12:14] VITALS: O2SAT 100
--- NOTE | 2025-04-04 12:14 | EKG12_ITS ---
Test Reason : CP Blood Pressure : */* mmHG Vent. Rate : 82 BPM Atrial Rate : 82 BPM P-R Int : 122 ms QRS Dur : 88 ms QT Int : 368 ms P-R-T Axes : 73 40 53 degrees QTcB Int : 429 ms Normal sinus rhythm Normal ECG Confirmed by MARC ROBERTSON, KALIN ([id number]), book editor STEF JEROME ([id number]) on 04/08/2025 9:37:36 AM Referred By: Erin Munguia Confirmed By: KALIN TRAN MD
[2025-04-04 12:18] VITALS: BP 121/76; PULSE 68; RESP 12; O2SAT 100
--- NOTE | 2025-04-04 12:30 | RAD_ITS ---
PROCEDURE: CHEST PA AND LATERAL 04/04/2025 REASON FOR EXAM: CHEST PAIN TECHNIQUE: CHEST PA AND LATERAL COMPARISON: Chest radiograph 04/03/2020. FINDINGS: Hardware: None. Heart: The heart size is normal. Mediastinum: The mediastinal contour is unremarkable. Lungs: No focal consolidation, pleural effusion or pneumothorax. Hyperinflation, which can be seen with COPD/emphysema. Bones: The bones are unremarkable. RAD/Chest PA and Lateral IMPRESSION: NO ACUTE FINDINGS. Reading Location: [id number]
[2025-04-04 12:34] LABS: Hematocrit 38.6 % (37-47); Hemoglobin 12.6 g/dL (12.0-15.0); Immature Granulocytes Count 0.020 X10^3/uL (0.0-0.0); Mean Corp Hgb Conc 32.6 g/dL (32-36); Mean Corpuscular Volume 85.6 fL (81-99); Mean Platelet Vol. 10.6 fl (6.2-12.0); NRBC Flagged by Analyzer 0 % (0-5); Platelet Count 246 K/mm3 (150-450); RBC Distribution Width CV 13.2 % (11.6-14.6); RBC Distribution Width SD 41.2 fl (35.1-43.9); Red Blood Count 4.51 M/mm3 (4.2-5.4); White Blood Count 5.3 K/mm3 (4.4-11.0)
[2025-04-04 12:45] LABS: D-Dimer Quantitative (DVT/PE) < 0.27 FEU/ug/m (0.27-0.49)
--- NOTE | 2025-04-04 12:51 | ED.VIS.CHEST ---
HPI History of Present Illness Chief Complaint: Chest Pain Informant: patient Narrative Narrative: Patient is a 34-year-old female presenting for ongoing chest tightness. She has been present for the past month and a half. States is constant but it fluctuates in intensity. She states it tends be worse at work. She saw her PCP (Daly rice) who ordered an echocardiogram and she had a 14-day heart monitor. She states those were normal. She does not think she has had a chest x-ray or any lab work done for this. She does have a chronic cough that she smokes cigarettes but denies any acute change in that. She does note that her feet have been a bit more swollen over the past month and again correlates that with being on her feet at work. She works at the [employer]. She denies any fevers. Today her symptoms seem worse and she was lightheaded today and she had to stop to catch her breath because of this. This is what prompted her to come to the emergency room for further evaluation. Denies any sharp chest pain. Denies any urinary symptoms. Denies any concern for . Notes during this episode today she had some pain for about 5 minutes but that is since resolved. No other complaints or concerns at this time. Denies any personal history of DVT, PE or cardiac issue does have a family history of heart problems. PFSH PFSH Medical History Migraine Graves disease Depression Home Medications Medication Instructions Recorded Last Taken Type chlorhexidine gluconate 0.12 % 15 ml MM TID #773 mL 10/01/20 Unknown Rx mouthwash penicillin V potassium 500 mg 500 mg PO 4X/DAY #40 tabs 10/01/20 Unknown Rx tablet Allergy/AdvReac Type Severity Reaction Status Date / Time No Known Allergies Allergy Verified 04/04/25 11:19 Surgical History Hx of tonsillectomy Social History Smoking Status: Heavy Smoker (>10/day) ROS ROS ED Constitutional Constitutional ED: Reports sweats; Denies chills or fever(s) ENT ENT ED: Denies sore throat Cardiovascular Cardiovascular: Reports as per HPI Respiratory/Chest Respiratory/Chest: Reports cough, dyspnea and dyspnea on exertion; Denies sputum Musculoskeletal Musculoskeletal: Denies arthralgias or myalgias Integumentary Denies rash Neurologic Neurologic: Denies weakness Hematologic/Lymphatic Hematologic/Lymphatic: Denies easy bleeding or easy bruising EXAM Physical Exam Const Vital Signs: 04/04/25 11:20 04/04/25 12:14 04/04/25 12:18 Temperature 97.5 F L Temperature Source Temporal Pulse Rate 83 68 Respiratory Rate 16 12 Blood Pressure 113/73 121/76 H Blood Pressure Mean 86 91 Pulse Ox 100 100 100 Oxygen Delivery Method Room Air 04/04/25 13:00 04/04/25 14:00 04/04/25 14:33 Temperature 97.5 F L Temperature Source Pulse Rate 63 68 68 Respiratory Rate 13 13 13 Blood Pressure 114/76 114/76 Blood Pressure Mean 88 88 Pulse Ox 100 100 100 Oxygen Delivery Method Room Air Room Air Positive well nourished and well developed General Appearance ED: well developed and NAD HEENT Reports moist mucous membranes HEENT Narrative: poor dentition Neck supple and no JVD Chest Wall inspection of chest normal and palpation of chest normal Resp normal respiratory effort and clear to auscultation bilaterally Cardio regular rate, regular rhythm and no murmurs GI non-tender and non-distended Neuro oriented x3 Sensorium / Orientation: awake and alert Motor Exam: Negative for general weakness Psych mental status grossly normal Skin no rashes or lesions noted MDM MDM MDM Narrative Medical decision making narrative: Patient Cote for 1 month shortness of breath and tightness in her chest. Denies any specific chest pain. Has had prior recent echocardiogram and stress test which have been normal per patient. Differential includes PE, thyroid abnormality, symptomatic anemia, ACS (lower suspicion given H&P), pericarditis and pericardial effusion (lower suspicion given report of recent normal echocardiogram). EKG is normal with no acute abnormalities. Chest x-ray reviewed by myself as well as radiology shows some hyperinflation but no other acute process. Lab work largely normal including CBC, D-dimer, CMP, high since he troponin and TSH. Patient is ambulated and states that she is symptomatic during this but her O2 saturation remains at 98%. Discussed with patient that I think her symptoms are more pulmonary and less likely cardiac. Especially she has a history of tobacco use. Will be given rescue inhaler in the ER with instruction on how to use it. Counseled to follow-up with primary care doctor she might require outpatient pulmonary function test. She verbalized understand this. She is not having wheezing or signs of acute extubation I do not think she requires steroids at this time. Encouraged smoking cessation. Discharged home in stable condition Lab Data Attestation: I reviewed the patient's lab results. Labs: Laboratory Results - last 24 hr 04/04/25 12:18 WBC 5.3 RBC 4.51 Hgb 12.6 Hct 38.6 MCV 85.6 MCH 27.9 MCHC 32.6 RDW Std Deviation 41.2 RDW Coeff of Rita 13.2 Plt Count 246 MPV 10.6 Immature Gran % (Auto) 0.400 Neut % (Auto) 68.4 Lymph % (Auto) 21.3 Shackelford % (Auto) 6.5 Eos % (Auto) 2.5 Baso % (Auto) 0.9 Absolute Neuts (auto) 3.6 Absolute Lymphs (auto) 1.12 Nucleated RBC % 0 D-Dimer Quant (PE/DVT) < 0.27 L Sodium 141 Potassium 3.8 Chloride 108 Carbon Dioxide 24.9 Anion Gap 8 BUN 14 Creatinine 0.77 Estim Creat Clear Calc 102.87 Est GFR (MDRD) Non-Af 104 BUN/Creatinine Ratio 18.5 Glucose 109 H Calcium 9.2 Total Bilirubin 0.25 AST 22 ALT 14 Alkaline Phosphatase 59 Troponin T High Sens < 6 Total Protein 6.4 Albumin 4.3 Globulin 2.2 Albumin/Globulin Ratio 2.0 TSH 1.270 Radiography Diagnostic Testing: Clinical Impression(s) from Imaging Studies Chest X-Ray 04/04/25 12:30 IMPRESSION: NO ACUTE FINDINGS. Reading Location: [id number] Rhythm Strip Rhythm Strip: Sinus Rhythm Rate: 82 Ectopy: None EKG Initial EKG: Attestation: I personally reviewed and interpreted this EKG as follows: Interpretation: Sinus Rhythm Comments: Normal sinus rhythm at a rate of 82 bpm Normal axis Normal intervals Normal ST segment Discharge Plan Triage Chief Complaint: Chest Pain ED Provider: Erin Munguia Dx/Rx/DC Orders Clinical Impression: Dyspnea, Lightheaded Instructions: ED Chest Pain, Noncardiac, ED Dyspnea Prescriptions: No Action penicillin V potassium 500 MG tablet 500 mg PO 4X/DAY Qty: 40 0RF chlorhexidine gluconate 473 ML mouthwash 15 ml MM TID Qty: 773 0RF Rx Instructions: Swish and spit 3 times a day after meals. Primary Care Provider: DALY RICE Referrals: DALY RICE NP-C [Primary Care Provider] - Activity Restrictions/Additional Instructions: Use inhaler 1 to 2 puffs every 4-6 hours as needed for shortness of breath or chest tightness. Cardiac workup today was normal and very reassuring. Your TSH which is a marker for your thyroid was normal. You have no findings on your blood work consistent with pulmonary emboli. No signs of stress on the heart and your high-sensitivity troponin was normal. Your chest x-ray did show hyperinflation of the lungs which can be consistent with COPD or asthma. Please follow-up with your family doctor for further evaluation of this. He might benefit from pulmonary function test. Please avoid any smoking Print Language: Bhutanese Disposition Disposition: Home, Self Care
[2025-04-04 13:00] VITALS: BP 114/76; PULSE 63; RESP 13; O2SAT 100
[2025-04-04 13:36] LABS: AST(SGOT) 22 U/L (<=31); Alanine Aminotransfer ALT/SGPT 14 U/L (<=34); Albumin, Serum 4.3 g/dL (3.5-5.0); Alkaline Phosphatase 59 U/L (35-104); Anion Gap 8 (5-15); BUN 14 mg/dL (4-19); BUN/Creat Ratio 18.5 RATIO (10-20); Calcium,Total 9.2 mg/dL (7.6-11.0); Carbon Dioxide 24.9 mmol/L (21.0-32.0); Chloride 108 mmol/L (98-108); Estimated Creatinine Clearance 102.87 ml/min (50-250); Globulin 2.2 g/dL (2.2-4.2); Glucose 109 mg/dL (70-99); Potassium 3.8 mmol/L (3.3-5.1); Troponin T High Sensitivity < 6 ng/L (<=14)
[2025-04-04 14:00] VITALS: PULSE 68; RESP 13; O2SAT 100
[2025-04-04 14:33] VITALS: BP 114/76; PULSE 68; RESP 13; TEMP 36.4; O2SAT 100
[2025-04-04] MEDS: Albuterol Sulfate 8 gm Inhaler (60 puffs) 2 PUFF INHALATION (14:53)
== END 2025-04-04 15:01 | disposition home or self-care (01) ==
PROVIDERS: Emergency Provider Emergency Medicine; PCP Nurse Practitioner; Referring Provider Emergency Medicine; Visit Provider Emergency Medicine
DX: R07.89 Other chest pain (principal); R42 Dizziness and giddiness; R06.00 Dyspnea, unspecified; R05.3 Chronic cough; M79.89 Other specified soft tissue disorders; F17.210 Nicotine dependence, cigarettes, uncomplicated
CPT/HCPCS: 71046; 80053; 84443; 84484; 85025; 85379; 93005; 99284; A4216